=== PATIENT | male | born 2000 | race Caucasian/White ===

== ENCOUNTER 2021-08-31 18:40 | Emergency (ER) | payer SELFPAY ==
[2021-08-31 18:48] VITALS: BP 150/95; PULSE 72; RESP 16; TEMP 36.7; O2SAT 99; BMI 29.7
--- NOTE | 2021-08-31 19:59 | CTR_ITS ---
PROCEDURE INFORMATION: Exam: CT Head Without Contrast Exam date and time: 08/31/2021 7:59 PM Age: 21 years old Clinical indication: Altered mental status/memory loss and dizziness; Confusion or disorientation; Additional info: Memory/coordination abnormality TECHNIQUE: Imaging protocol: Computed tomography of the head without contrast. Radiation optimization: All CT scans at this facility use at least one of these dose optimization techniques: automated exposure control; mA and/or kV adjustment per patient size (includes targeted exams where dose is matched to clinical indication); or iterative reconstruction. COMPARISON: No relevant prior studies available. RADIATION DOSE METRICS: Total DLP (mGy-cm): 1010.44 FINDINGS: Brain: Normal. No hemorrhage. Unremarkable white matter. No mass effect. Cerebral ventricles: No ventriculomegaly. Paranasal sinuses: Visualized sinuses are unremarkable. No fluid levels. Mastoid air cells: Visualized mastoid air cells are well aerated. Bones/joints: Unremarkable. No acute fracture. Soft tissues: Unremarkable. CT/CT head wo con* [id number] IMPRESSION: No acute intracranial abnormality.
--- NOTE | 2021-08-31 19:59 | XRR_ITS ---
PROCEDURE INFORMATION: Exam: XR Chest Exam date and time: 08/31/2021 7:59 PM Age: 21 years old Clinical indication: Pain; Chest pressure; Additional info: Chest pains, SOB TECHNIQUE: Imaging protocol: XR of the chest. Views: 1 view. COMPARISON: CT abdomen pelvis w con* [id number] 10/04/2017 2:17 PM FINDINGS: Lungs: Unremarkable. No consolidation. Pleural spaces: Unremarkable. No pleural effusion. No pneumothorax. Heart/Mediastinum: Unremarkable. No cardiomegaly. Bones/joints: Unremarkable. XR/XR chest 1V portable [id number] IMPRESSION: No acute findings.
--- NOTE | 2021-08-31 20:00 | ECG_ITS ---
[facility] Test Date: 2021-08-31 Pat Name: Douglas Maria Department: Room: Gender: Male Handle Finisher: : 2000 Requested By: Marcellus Dale Order Number: [id number] Nicci MD: Ritchie West M.D. Measurements Intervals [place] Rate: 70 P: 67 MS: 227 QRS: 97 QRSD: 129 T: 42 QT: 374 QTc: 406 Interpretive Statements SINUS RHYTHM WITH FIRST DEGREE AV BLOCK BORDERLINE RIGHT AXIS DEVIATION [QRS AXIS > 90] MODERATE INTRAVENTRICULAR CONDUCTION DELAY [110+ ms QRS DURATION] ST ELEVATION, PROBABLY EARLY REPOLARIZATION [ST ELEVATION WITH NORMALLY INFLECTED T-WAVE] No previous ECG available for comparison Electronically Signed On 08-31-2021 20:54:41 INTERNAL CORROSION SPECIALIST by Ritchie West M.D. [id number]
--- NOTE | 2021-08-31 22:00 | ECG_ITS ---
[facility] Test Date: 2021-08-31 Pat Name: Douglas Maria Department: Room: Gender: Male Arson And Bomb Investigator: : 2000 Requested By: Marcellus Dale Order Number: [id number] Grajeda MD: Aneta Mack M.D. Measurements Intervals [place] Rate: 65 P: 62 [place]: 214 QRS: 101 QRSD: 124 T: 44 QT: 375 QTc: 391 Interpretive Statements SINUS RHYTHM WITH SINUS ARRHYTHMIA WITH FIRST DEGREE AV BLOCK RIGHT AXIS DEVIATION [QRS AXIS > 100] MODERATE INTRAVENTRICULAR CONDUCTION DELAY [110+ ms QRS DURATION] ST ELEVATION, PROBABLY EARLY REPOLARIZATION [ST ELEVATION WITH NORMALLY INFLECTED T-WAVE] Compared to ECG 08/31/2021 18:56:18 No significant changes Electronically Signed On 09-01-2021 13:16:51 SAND MILL GRINDER by Aneta Mack M.D. [id number]
--- NOTE | 2021-08-31 22:18 | W.ED.GENADLT ---
Documented by User: LORI Sharif 09/01/21 03:59 HPI - General Adult General: Chief complaint: General Medical Stated complaint: Possible stroke symptoms Time Seen by Provider: 08/31/21 22:15 History of Present Illness: HPI narrative: Patient is a 21-year-old male who comes to the ED with episodes of confusion. He said approximately 1 week ago he is when the episode started. Says he was going to put on his coat and then got confused and was not sure what he was doing. Episodes only last for several minutes. He said he has had multiple episodes like this throughout the past week. Mother is present with patient said that today she told him to take some aspirin and he acted confused about what that was. Patient does admit to being a heavy drinker over the weekends. He denies daily alcohol use. Patient also reports feeling some shortness of breath for the past week as well. Denies any chest pain or any other symptoms. Associated symptoms: Reports confusion (Episodes of confusion) and dyspnea; Deny chest pain, headache(s), nausea, rash, palpitations or vomiting Review of Systems Const: Denies: fever(s), chills or fatigue Eyes: Denies: change in vision or eye discomfort ENMT: Denies: throat pain, odynophagia, nasal discharge or nasal congestion Card: Denies: chest pain, palpitations, edema, swelling of feet/ankles, dyspnea on exertion or orthopnea Resp: Reports: dyspnea; Denies: productive cough or non-productive cough GI: Denies: abdominal pain, nausea, vomiting, diarrhea, constipation or hematochezia : Denies: flank pain, difficulty urinating, dysuria or hematuria Musc: Denies: neck pain, back pain or extremity swelling Skin/Breast: Denies: rash or new lesions Neuro: Reports: confusion (Episodes of confusion); Denies: headache(s), numbness in extremities or weakness in extremities Physical Exam Narrative: EXAM NARRATIVE: Patient is a 21-year-old male that appears nontoxic and healthy laying comfortably on exam bed when I enter the room. He is showing no signs of any distress. Neuro exam was completely normal and he is alert and oriented x3 and having no confusion currently. Const: COMMON NORMALS: no acute distress, patient oriented x3, healthy appearing and alert GENERAL APPEARANCE: cooperative and comfortable HENMT: COMMON NORMALS: normocephalic HEAD & SCALP: normocephalic MOUTH: Normal oral and palatal mucosa present THROAT: posterior oropharynx normal and uvula midline Neck/C-Spine: COMMON NORMALS: supple GENERAL: Yes normal visual inspection Resp: COMMON NORMALS: normal respiratory effort, No retractions, No use of accessory muscles and clear to auscultation bilaterally AUSCULTATION: clear to auscultation bilaterally Cardio: COMMON NORMALS: regular rate, regular rhythm, S1 normal heart sound present, S2 normal heart sound present, No gallops present (Cardio), No clicks present (Cardio), No murmurs present (Cardio) and Peripheral pulses 2+ throughout RATE: regular rate RHYTHM: regular rhythm HEART SOUNDS: S1 normal heart sound present and S2 normal heart sound present PERIPHERAL PULSES: Peripheral pulses 2+ throughout GI: COMMON NORMALS: Normal to inspection, nondistended, normoactive bowel sounds present, Soft to palpation, non-tender and no masses PALPATION: Yes Soft to palpation : COMMON NORMALS: Yes no CVA tenderness BLADDER/KIDNEY EXAM: Yes no CVA tenderness Back/Pelvis: COMMON NORMALS: no CVA tenderness Extremity: COMMON NORMALS: normal to inspection Neuro: COMMON NORMALS: patient oriented x3, CN's II-XII intact bilaterally, moves all extremities, no focal motor deficits and no sensory deficits noted SENSORIUM/ORIENTATION: Yes alert SPEECH: speech normal SENSORY EXAM: Yes extremities (Intact to soft touch) MOTOR EXAM: 5/5 motor strength present throughout Skin: GENERAL SKIN EXAM: dry skin Course ED course: I went in and talked with patient about CT, chest x-ray report showing no acute findings. I also told the EKG looked good and showed no acute findings as well. I told patient that we could do some blood work here in the ED or he could be discharged home and to follow-up with his primary care physician. Patient decided he would rather just follow-up with primary care physician and does not want to do blood work and wait around for results here in the ED. Vital Signs: Vital signs: Vital Signs Temperature 98.0 F 08/31/21 18:48 Pulse Rate 85 08/31/21 22:19 Respiratory Rate 16 08/31/21 18:48 Blood Pressure 139/81 08/31/21 22:19 Pulse Oximetry 98 08/31/21 22:19 MDM - General Adult MDM Narrative: Medical decision making narrative: Patient is a 21-year-old male comes to the ED with episodes of confusion. Patient says symptoms first started about a week ago. He also reports feeling some shortness of breath as well. Patient does endorse drinking alcohol heavily over the weekends but denies any daily alcohol use. Vitals stable with O2 sat at 99% room air respirations 16. Patient appears in no respiratory distress at all and is sitting comfortably on exam bed and showing no signs of any labored breathing. Exam is benign here in the ED and no neuro deficits noted. He is alert and oriented x3. Lungs are clear to auscultation bilaterally. EKG showed no acute findings. Chest x-ray showed no acute findings. CT of head showed no acute findings. I went in and talked with patient about CT, chest x-ray report showing no acute findings. I also told the EKG looked good and showed no acute findings as well. I told patient that we could do some blood work here in the ED or he could be discharged home and to follow-up with his primary care physician. Patient decided he would rather just follow-up with primary care physician and does not want to do blood work here in the ED. I placed an order with case management for patient be referred to a PCP to get established care with them. Patient was told case sealer will contact you next several days set up that appointment with a primary care physician. Return to ED precautions given. Patient understood agree with plan. Imaging Data^: CT Head: Attestation: I personally reviewed and interpreted this imaging study as follows: Radiologist's impression: [address] [id number] Scan ReportSigned Patient: Jose A Maria #: [id number]: 2000Acct#:[id number]/Sex: 21 / MADM Date: 08/31/21Loc: ERRoom/Bed:Attending Dr: Ordering Provider/Ordering MD: Marcellus Dale MD Date of Service: 08/31/21 Procedure(s): CT head wo con* [id number] Accession Number(s): [id number] Report Number: [id number] PROCEDURE INFORMATION: Exam: CT Head Without Contrast Exam date and time: 08/31/2021 7:59 PM Age: 21 years old Clinical indication: Altered mental status/memory loss and dizziness; Confusion or disorientation; Additional info: Memory/coordination abnormality TECHNIQUE: Imaging protocol: Computed tomography of the head without contrast. Radiation optimization: All CT scans at this facility use at least one of these dose optimization techniques: automated exposure control; mA and/or kV adjustment per patient size (includes targeted exams where dose is matched to clinical indication); or iterative reconstruction. COMPARISON: No relevant prior studies available. RADIATION DOSE METRICS: Total DLP (mGy-cm): 1010.44 FINDINGS: Brain: Normal. No hemorrhage. Unremarkable white matter. No mass effect. Cerebral ventricles: No ventriculomegaly. Paranasal sinuses: Visualized sinuses are unremarkable. No fluid levels. Mastoid air cells: Visualized mastoid air cells are well aerated. Bones/joints: Unremarkable. No acute fracture. Soft tissues: Unremarkable. CT/CT head wo con* [id number] IMPRESSION: No acute intracranial abnormality. Dictated By:Gage Bolivar MDSigned By:Gage Bolivar MDSigned Date/Time:08/31/212027DD/ 58 CXR: Attestation: I personally reviewed and interpreted this imaging study as follows: Radiologist's impression: [facility] [address] [id number] ReportSigned Patient: Jose A Maria #: [id number]: 2000Acct#:[id number]/Sex: 21 / MADM Date: 08/31/21Loc: ERRoom/Bed:Attending Dr: Ordering Provider/Ordering MD: Marcellus Dale MD Date of Service: 08/31/21 Procedure(s): XR chest 1V portable [id number] Accession Number(s): [id number] Report Number: [id number] PROCEDURE INFORMATION: Exam: XR Chest Exam date and time: 08/31/2021 7:59 PM Age: 21 years old Clinical indication: Pain; Chest pressure; Additional info: Chest pains, SOB TECHNIQUE: Imaging protocol: XR of the chest. Views: 1 view. COMPARISON: CT abdomen pelvis w con* [id number] 10/04/2017 2:17 PM FINDINGS: Lungs: Unremarkable. No consolidation. Pleural spaces: Unremarkable. No pleural effusion. No pneumothorax. Heart/Mediastinum: Unremarkable. No cardiomegaly. Bones/joints: Unremarkable. XR/XR chest 1V portable [id number] IMPRESSION: No acute findings. Dictated By:Gage Bolivar MDSigned By:Gage Bolivar MDSigned Date/Time:08/31/212026DD/ 58 EKG Data^: EKG 1: Attestation: I personally reviewed and interpreted this EKG as follows: EKG interpretation date: 08/31/21 Interpretation: Sinus rhythm with a rate of [address] segment elevation or depression seen. Early repolarization noted. Dr. Dale reviewed EKG as well and found no acute findings. Computer generated interpretation: Chest X-Ray 08/31/21 19:59 IMPRESSION: No acute findings. Head CT 08/31/21 19:59 IMPRESSION: No acute intracranial abnormality. Discharge Plan Discharge Patient Disposition: Home Clinical Impression: Episodic confusion Condition: Stable Discharge Orders: Discharge ED (Routine); Ordered 08/31/21 Ordered By: John Vázquez Discharge Diet: Regular Discharge Activity: Resume usual activity Activity Restrictions/Additional Instructions: Follow-up with medical provider as directed. Case management should be contacting you in the next several days set up an appointment with a primary care physician. Return to the ER or your medical provider if condition worsens. Please read and understand discharge instructions. Thank you for choosing [facility] for your healthcare needs today. Please realize this is an emergency room and that we are providing you with a medical screening exam and this may not be complete and all inclusive of all the testing and or work up that you may need to determine your ailment or severity of your illness. It is very important that you follow up as instructed or that you return to the Emergency Department should you have concerns or if your condition changes or worsens in any way. Coding Level of Care Code ED Residential Service Technician for Chg Fwd Exam Comprehensive Documented by User: Marcellus Dale MD 09/03/21 22:13 HPI - General Adult General: Chief complaint: General Medical Stated complaint: Possible stroke symptoms Time Seen by Provider: 08/31/21 22:15 Course Vital Signs: Vital signs: Vital Signs Temperature 98.0 F 08/31/21 18:48 Pulse Rate 85 08/31/21 22:19 Respiratory Rate 16 08/31/21 18:48 Blood Pressure 139/81 08/31/21 22:19 Pulse Oximetry 98 08/31/21 22:19 MDM - General Adult MDM Narrative: Medical decision making narrative: I discussed this case with LORI Sharif. I reviewed documentation. Labs had been ordered however based on his exam not necessarily definitively required. Engaged in shared decision making, labs deferred at this time. Marcellus Dale MD Emergency Medicine EKG Data^: EKG 1: Computer generated interpretation: Chest X-Ray 08/31/21 19:59 IMPRESSION: No acute findings. Head CT 08/31/21 19:59 IMPRESSION: No acute intracranial abnormality. Discharge Plan Discharge Patient Disposition: Home Clinical Impression: Episodic confusion Condition: Stable Discharge Orders: Discharge ED (Routine); Ordered 08/31/21 Ordered By: John Vázquez Discharge Diet: Regular Discharge Activity: Resume usual activity Activity Restrictions/Additional Instructions: Follow-up with medical provider as directed. Case management should be contacting you in the next several days set up an appointment with a primary care physician. Return to the ER or your medical provider if condition worsens. Please read and understand discharge instructions. Thank you for choosing [facility] for your healthcare needs today. Please realize this is an emergency room and that we are providing you with a medical screening exam and this may not be complete and all inclusive of all the testing and or work up that you may need to determine your ailment or severity of your illness. It is very important that you follow up as instructed or that you return to the Emergency Department should you have concerns or if your condition changes or worsens in any way. Coding Level of Care Code ED Residential Service Technician for Janina Fwjosé luis Exam Comprehensive
[2021-08-31 22:19] VITALS: BP 139/81; PULSE 85; O2SAT 98
--- NOTE | 2021-09-01 14:03 | DCPLANNER ---
Addendum entered by Nahomy Pereira 10/01/21 16:09: Patient had a followup appointment scheduled for 09.08.[address] Xiong at [facility] - patient did attend appointment. Original Note: club manager had message to speak with patient about getting established with a primary care physician. club manager spoke with patient, he stated that he would like to get help in getting established with a primary care physician. club manager called [facility], spoke with Marie, gave clinic patients information. A follow up appointment was scheduled for Wednesday, September 08, 2021 at 3:[address] Gill. club manager called patient and gave patient the appointment information.
== END 2021-08-31 23:12 | disposition home or self-care (01) ==
PROVIDERS: Emergency Provider Physician Assistant
DX: R41.0 Disorientation, unspecified (principal)
CPT/HCPCS: 70450; 71045; 93005; 99283

== ENCOUNTER → 2021-09-08 15:13 | Outpatient (BNVA) | payer SELFPAY | PROVIDERS: Visit Provider Family Medicine | DX: R41.0 Disorientation, unspecified (principal); Z76.89 Persons encountering health services in other specified circumstances | CPT/HCPCS: 80053; 84443; 84484; 85025; 86140 ==

== ENCOUNTER 2023-11-23 23:53 | Emergency (ER) | payer SELFPAY ==
[2023-11-23 23:58] VITALS: BP 135/75; PULSE 84; RESP 14; TEMP 37.1; O2SAT 97; BMI 26.4
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
--- NOTE | 2023-11-23 23:59 | ECG_ITS ---
[facility] Test Date: 2023-11-24 Pat Name: Douglas Maria Department: Room: Gender: Male Team Lead: : 2000 Requested By: Sandor Concepcion Order Number: [id number] Grajeda MD: Ritchie West M.D. Measurements Intervals [place] Rate: 80 P: 68 [place]: 222 QRS: 99 QRSD: 134 T: 51 QT: 362 QTc: 418 Interpretive Statements SINUS RHYTHM WITH FIRST DEGREE AV BLOCK BORDERLINE RIGHT AXIS DEVIATION [QRS AXIS > 90] INTRAVENTRICULAR CONDUCTION DELAY [130+ ms QRS DURATION] Compared to ECG 08/31/2021 21:56:20 Sinus arrhythmia no longer present ST (T wave) deviation no longer present Early repolarization no longer present Electronically Signed On 11-24-2023 0:04:49 CDT by Ritchie West M.D. [id number]
[2023-11-24 00:37] VITALS: BP 129/82; PULSE 75; RESP 21; O2SAT 95
[2023-11-24 00:39] LABS: Creatine Phosphokinase 97 U/L (39-308)
[2023-11-24 00:45] VITALS: BP 125/82; PULSE 81; RESP 20; O2SAT 97
== END 2023-11-24 00:57 | disposition home or self-care (01) ==
PROVIDERS: Emergency Provider Internal Medicine
DX: T75.4XXA Electrocution, initial encounter (principal); W86.0XXA Exposure to domestic wiring and appliances, initial encounter
CPT/HCPCS: 82550; 93005; 99284